=== PATIENT | female | born 1955 | race Caucasian/White ===

== ENCOUNTER → 2016-12-03 17:46 | Outpatient (CLI) | payer MEDICARE ==
[2014-05-03 07:01] VITALS: BMI 26.6
[~2016-12-03 17:46] MED LIST: LOPRESSOR25 MG PO; SYNTHROID112 MCG PO; TRAZODONE HCL50 MG PO; [UNRECOGNIZED DRUG - OTHER] TD
== END | disposition home or self-care (01) ==
LOC: D.MAMMO 11:00
DX: Z12.31 Encounter for screening mammogram for malignant neoplasm of breast (principal)

== ENCOUNTER 2017-03-05 08:55 | Outpatient (CLI) | payer MEDICARE ==
[~2017-03-05] VITALS: Ht 167.6 cm; Wt 72.7 kg
--- NOTE | ~2017-03-05 | HEMODYNAMI ---
PATIENT:MELVIN CARDOZA MEDICAL RECORD: [id number] : 59 LOCATION:[facility] ADMISSION DATE: 03/05/17 Generatedon:03/05/201711:16 Patient name: MELVIN CARDOZA Patient #: [id number] SSN: D OB: 1955 Date of study: 03/05/2017 Page: Of Hemodynamic Procedure Report Patient Data Patient Demographics Procedure consent was obtained First Name: MELVIN Gender: Female Last Name: NANI : 1955 [facility] Initial: L Age: 61 year(s) Patient #: [id number] Race: Unknown Additional ID: [id number] Contact details [address]: [address] [place] [address] State: [place] City: [place] Zip code: [address] Past Medical History Allergies Allergen Reaction Date Comments Reported Other allergy 03/05/2017 SULFA, CODEINE Admission Admission Data Admission Date: 03/05/2017 Admission Time: 8:55 Admit Source: Other Height (in.): 5.6 BSA: 0.31 (m2) Height (cm.): 14.22 BMI: 3676.76 (kg/m2) Weight (lbs.): 164 Weight (kg.): 74.39 Lab Results Lab Result Date: 03/05/2017 Lab Result Time: 9:40 Biochemistry Name Units Result Min Max BUN mg/dl 16 --(---*)-- 7 18 Creatinine mg/dl 0.7 --(*---)-- 0.6 1.3 CBC Name Units Result Min Max Hematocrit % 39.8 -*(----)-- 42 54 Hemoglobin g/dl 13.3 -*(----)-- 13.5 17.5 Procedure Procedure Types Cath Procedure Diagnostic Procedure LHC LHC w/Coronaries Miscellaneous Procedures Moderate Sedation up to 15 minutes Procedure Description Procedure Date Procedure Date: 03/05/2017 Procedure Start Time: 11:05 Procedure End Time: 11:15 Procedure Staff Name Function Eldon Song MD Performing Physician Veronica Lima RT Monitor Renny Green RT Scrub Tao Dunham RN Nurse Procedure Data Cath Procedure Fluoroscopy Diagnostic fluoroscopy Total fluoroscopy Time: time: 0.66 min 0.66 min Diagnostic fluoroscopy Total fluoroscopy dose: 91 dose: 91 mGy mGy Contrast Material Contrast Material Type Amount (ml) Isovue 300 54 Entry Location Entry Primary Successful Side Size Upsize Upsize Entry Closure Succes sful Closure Location (Fr) 1 (Fr) 2 (Fr) Remarks Device Remarks Femoral Right 5 Fr Exoseal artery Estimated blood loss: 5 ml Diagnostic catheters Device Type Used For End Catheter Placement MULTIPACK Pigtail 5 Fr Procedure catheter MULTIPACK JL 4.0 5Fr Procedure catheter MULTIPACK 3DRC 5Fr Procedure catheter Procedure Complications No complications Procedure Medications Medication Administration Route Dosage Oxygen NC 2 l/min Heparin Flush Bag added to field 2 bags (1000units/500ml NS) 0.9% NaCl I.V. ml/hr Fentanyl I.V. 50 mcg Versed I.V. 1 mg Fentanyl I.V. 50 mcg Versed I.V. 1 mg Hemodynamics Rest BSA: 0.31 (m2) HGB: 13.3 (g/dl) O2 Consumption: Estimated: 29.37 (ml/min) O2 Con sumption indexed: Estimated:94.74 (ml/min/m) Heart Rate: 69 (bpm) Snapshots Pre Cath Intra NCS Post Cath Vital Signs Time Heart Resp SPO2 etCO2 NIBP (mmHg) Rhythm Pain Sedation Rate (ipm) (%) (mmHg) Status Level (bpm) 10:50:38 65 18 97 170/86(116) NSR 0 (11) 10(A) , No pain 10:55:02 64 17 96 35.4 163/79(121) NSR 0 (11) 10(A) , No pain 10:59:24 69 18 92 37.7 152/77(125) NSR 0 (11) 10(A) , No pain 11:03:42 66 16 92 40 148/73(117) NSR 0 (11) 10(A) , No pain 11:07:58 71 17 89 42.9 134/72(99) NSR 0 (11) 9(A) , No pain 11:12:12 72 18 95 37.7 142/81(101) NSR 0 (11) 9(A) , No pain Medications Time Medication Route Dose Verified Delivered Reason Notes Effec tiveness by by 10:53:31 Oxygen NC 2 Eldon Burger Per l/min Duncan Dunham RN physician 10:53:40 Heparin Flush added 2 Eldon Bruger used for Bag to bags Duncan Dunham reverberatory furnace operator (1000units/500ml field NS) 10:53:47 0.9% NaCl I.V. ml/hr Eldon Burger Per Duncan Dunham RN physician 11:05:29 Fentanyl I.V. 50 Eldon Overtony for mcg Duncan Dunham RN sedation 11:05:35 Versed I.V. 1 mg Eldon Burger for Duncan Dunham RN sedation 11:09:46 Fentanyl I.V. 50 Eldon Burger for mcg Duncan Dunham RN sedation 11:09:50 Versed I.V. 1 mg Eldon Burger for Duncan Dunham RN sedation Procedure Log Time Note 10:25:37 Veronica Lima RT(R) sent for patient. Start room use. 10:29:36 Informed consent obtained and on chart 10:29:49 Admit Source: Other 10:29:51 Diagnostic Cath status Elective 10:29:53 Time tracking: Regular hours 10:29:56 Plan of Care:Hemodynamics will remain stable., Cardiac rhythm will remain stable., Comfort level will be maintained., Respiratory function will remain adequate., Patient/ family verbilizes understanding of procedure., Procedure tolerated without complication., Recovers from procedure without complications.. 10:30:07 H&P Date Dictated: 02/21/2017 Within 30 days and on chart., H&P Addendum completed by physician on day of procedure. (MUST COMPLETE FOR ALL OUTPATIENTS). 10:31:12 Lab Result : Hematocrit 39.8 % 10:31:12 Lab Result : Hemoglobin 13.3 g/dl 10:31:12 Lab Result : BUN 16 mg/dl 10:31:12 Lab Result : Creatinine 0.7 mg/dl 10:36:26 Patient Height : 5.6 inches 10:36:32 Patient Weight : 164 lbs 10:43:50 Patient received from Pre/Post Procedure Room to [facility] 3 Alert and oriented. Tansferred to table in Supine position. 10:43:51 Warm blankets applied, and roman hugger turned on for patient comfort. 10::52 Correct patient and procedure confirmed by team. 10::53 ECG and BP/O2 sat monitors applied to patient. 10:49:23 Vital chart was started 10:52:46 Baseline sample Acquired. 10::51 Rhythm: sinus rhythm 10:52:52 Full Disclosure recording started 10::53 Pre-procedure instructions explained to patient. 10::54 Pre-op teaching completed and patient verbalized understanding. 10:52:56 Family in patients room. 10:52:57 Patient NPO since Midnight. 10:53:12 Patient allergic to Other allergySULFA, CODEINE 10:53:14 Is the patient allergic to Iodine/contrast media? No. 10:53:16 Is patient on blood thinner?No 10:53:18 Patient diabetic? No. 10:53:22 Patient not . Patient is over age 55. 10:53:26 Previous problem with sedation/anesthesia? No ? 10:53:28 Snore? Yes 10:53:29 Sleep apnea? No 10:53:30 Deviated septum? No 10:53:31 Oxygen 2 l/min NC was administered by Tao Dunham RN; Per physician; 10:53:37 Opens mouth fully? Yes 10:53:38 Sticks out tongue? Yes 10:53:40 Heparin Flush Bag (1000units/500ml NS) 2 bags added to field was administered by Tao Dunham RN; used for procedure; 10:53:40 Airway obstruction? No ? 10:53:46 Dentures? Yes PARTIALS IN TIGHT 10:53:47 0.9% NaCl ml/hr I.V. was administered by Tao Dunham RN; Per physician; 10:53:50 Pre procedure: right dorsailis pedis pulse 2+ Normal; easily identifiable; not easily obliterated 10:53:57 IV patent on arrival in right forearm with 0.9% NaCl at [facility]. 10:54:01 Lab results completed and on chart. 10:54:04 Right groin area was prepped with chlora-prep and draped in sterile fashion 10:54:06 Alarms reviewed by R. N. 10:54:06 Sharps counted by scrub and verified by R.N. 11:01:21 Physician paged 11:02:27 --------ALL STOP TIME OUT------ :: Final Timeout: patient, procedure, and site verified with staff and physician. All members of the team are in agreement. 11:02:29 Right groin site verified by team. 11:02:32 Physical assessment completed. ASA score P 2 - A patient with mild systemic disease as per Eldon Song MD. 11:02:36 Sedation plan: IV Moderate Sedation Medication:Versed, Fentanyl 11:02:43 Use device set Femoral Dx 11:02:45 ACIST Syringe (41913) opened to sterile field. 11:02:46 Bag Decanter (2002S) opened to sterile field. 11:02:47 ACIST Hand Control (39803) opened to sterile field. 11:02:48 ACIST Manifold (07828) opened to sterile field. 11:02:49 Tegaderm 4 x 4 (1626W) opened to sterile field. 11:02:51 Medline Cath Pack ([id number]) opened to sterile field. 11:02:51 SHEATH 5FR Monclova (CUL910) opened to sterile field. 11:02:52 DIAGNOSTIC WIRE .035 260cm J wire (833160) opened to sterile field. 11:02:53 DIAGNOSTIC Multipack 5Fr catheter set (ML1860) opened to sterile field. 11:02:54 PERCUTANEOUS ENTRY 19GA needle opened to sterile field. 11:03:59 Zero performed for pressure channel P1 11:04:12 Zero performed for pressure channel P1 11:05:29 Fentanyl 50 mcg I.V. was administered by Tao Dunham RN; for sedation; 11:05:35 Versed 1 mg I.V. was administered by Tao Dunham RN; for sedation; 11:05:39 Procedure started. 11:05:44 Local anesthetic to right femoral artery with Lidocaine 2% by Eldon Song MD.INITIAL ACCESS ONLY 11:06:23 A 5 Fr sheath was inserted into the Right Femoral artery 11:07:08 A MULTIPACK Pigtail 5 Fr catheter was advanced over the wire and used for Procedure. 11:07:10 LV gram done using TSANG 11:07:18 Injector settings: Ml/sec: 10, Volume: 20, 11:07:43 EF : 60 % 11:07:46 Catheter removed. 11:07:51 A MULTIPACK JL 4.0 5Fr catheter was advanced over the wire and used for Procedure. 11:08:45 LCA angiography performed. 11:09:39 Catheter removed. 11:09:46 Fentanyl 50 mcg I.V. was administered by Tao Dunham RN; for sedation; 11:09:50 Versed 1 mg I.V. was administered by Tao Dunham RN; for sedation; 11:10:11 A MULTIPACK 3DRC 5Fr catheter was advanced over the wire and used for Procedure. 11:10:30 RCA angiography performed. 11:10:34 Catheter removed. 11:10:37 EXOSEAL 5Fr (EX500) opened to sterile field. 11:11:53 Sheath removed intact; hemostasis achieved with Exoseal to the Right Femoral artery. 11:11:55 Procedure ended.(Physican Out) 11:12:54 Fluoroscopy time 00.66 minutes. 11:13:01 Fluoroscopy dose: 91 mGy 11:13:01 Flurop Dose total: 91 11:13:10 Contrast amount:Isovue 300 54ml. 11:13:12 Sharps counted by scrub and verified by R.N. 11:13:16 Insertion/operative site no bleeding no hematoma. 11:13:19 Post-op/insertion site Right Femoral artery dressed using a 4 x 4 and Tegaderm. 11:13:23 Post right femoral artery:stable, soft, clean and dry 11:13:27 Post-procedure physical assessment completed. ASA score P 2 - A patient with mild systemic disease as per Eldon Song MD. 11:13:30 Post procedure rhythm: unchanged. 11:13:32 Estimated blood loss: 5 ml 11:13:34 Post procedure instruction explained to patient.Patient verbalizes understanding. 11:13:34 Patient needs reinforcement of post procedure teaching. 11:13:41 Procedure type changed to Cath procedure, Diagnostic procedure, LHC, LHC w/Coronaries, Miscellaneous Procedures, Moderate Sedation up to 15 minutes 11:14:04 Procedure and supply charges have been captured, reviewed, submitted and are correct. 11:14:08 Procedure Complication : No complications 11:15:15 Vital chart was stopped 11:15:16 See physician's report for complete and final results. 11:15:17 Report given to Pre/Post Procedure Room. 11:15:23 Patient transfered to Pre/Post Procedure Room with Bed. 11:15:29 Procedure ended. 11:15:29 Full Disclosure recording stopped 11:15:37 End room use (Document Last) Device Usage Item Name Manufacture Quantity Catalog Hospital Part Current Minimal Lot# / Number Charge Number Stock Stock Serial# Code ACIST Acist 1 85127 643605 982496 874645 20 Syringe Medical (81052) Systems Inc Bag Decanter Microtek 1 2001S 125087 29625 007461 5 (2001S) Medical Inc. ACIST Hand Acist 1 93192 306628 120169 912598 5 Control Medical (97712) Systems Inc ACIST Acist 1 73851 016321 145773 650291 5 Manifold Medical (43448) Systems Inc Tegaderm 4 x 3M 1 1626W 890627 188868 068240 5 4 (1626W) Medline Cath Cardinal 1 [id number] 300726 19532 444687 5 Pack Health ([id number]) SHEATH 5FR Terumo 1 CPO815 104576 507038 537672 40 Monclova (YWY266) DIAGNOSTIC St Elvis 1 409119 301079 640725 813697 30 WIRE .035 260cm J wire (507942) DIAGNOSTIC Cardinal 1 BX3679 287955 74448 251553 30 Multipack Health 5Fr catheter set (CO4422) PERCUTANEOUS Cook Medical 1 M15784 964008 937007 5 ENTRY 19GA needle MULTIPACK Cardinal 1 658853 5 Pigtail 5 Fr Health catheter MULTIPACK JL Cardinal 1 974014 5 4.0 5Fr Health catheter MULTIPACK Cardinal 1 622301 5 3DRC 5Fr Health catheter EXOSEAL 5Fr Cardinal 1 EX500 481065 681878 301979 10 (EX500) Health Signature Audit [place] Stage Time Signature Unsigned Intra-Procedure 03/05/2017 Veronica Lima 11:16:00 AM RT(R) Signatures Monitor : Veronica Lima Signature : RT Date : Time : [address] [address]
--- NOTE | ~2017-03-05 | OP ---
PATIENT NAME: MELVIN CARDOZA MEDICAL RECORD: [id number] :59 LOCATION:[facility] ADMISSION DATE: SURGEON: GALLITO GALLOWAY MD DATE OF OPERATION: 03/05/2017 DATE OF SERVICE: 03/05/2017 PROCEDURES: 1. Left heart catheterization. 2. Selective coronary angiography. 3. Left ventriculogram. INDICATION: Chest pain compatible with angina, coronary artery disease, previous PTCA stent. PROCEDURE IN DETAIL: After informed consent was obtained and after detailed explanation of risks, benefits as well as alternative therapies, the patient elected to proceed with angiogram and heart catheterization. The right femoral area was prepped and draped in normal sterile fashion. The right femoral artery was cannulated via modified Seldinger technique with placement of 5-Amharic sheath. All catheters exchanged through this sheath. FINDINGS: The left ventriculogram was performed in standard 30-degree TSANG view, reveals good cardiac wall motion throughout all segments. Overall ejection fraction estimated at 60%. SELECTIVE CORONARY ANGIOGRAPHY: 1. Left main showed no significant angiographic disease. 2. Left anterior descending has previously placed stent. This is widely patent with no significant restenosis. No disease elsewise to the LAD or its branches. 3. Left circumflex shows moderate irregularities, but no flow-limiting stenosis. 4. Right coronary has moderate irregularities, but no flow-limiting stenosis. OVERALL IMPRESSION: Wide patency of the previously placed stent. No disease elsewise. Normal left ventricular function. Continue medical management of the coronary artery disease and cardiac risk factors. TRANSINT:[id number] Voice Confirmation ID: [id number] DOCUMENT ID: [id number] GALLITO GALLOWAY MD at 1323 CC: [id number] DICTATION DATE: 03/05/17 1121 FILTER TANK TENDER HELPER: 03/05/17 1137 DEP CLI 03/05/17 [place] [id number]
[2017-03-05 09:38] VITALS: BP 132/69; Ht 167.6 cm; Wt 72.7 kg
[2017-03-05 09:58] LABS: BASOPHILS 1.1 % (0-2); EOSINOPHILS 5.6 % (0-7); HEMATOCRIT 39.8 % (36.0-48.0); HEMOGLOBIN 13.3 g/dL (12-16); IMMATURE GRANULOCYTES 0.3 % (0-5); LYMPHOCYTES 26.3 % (15-50); MCHC 33.4 g/dL (31.0-37.0); MCV 95.7 fL (80.0-100.0); MEAN PLATELET VOLUME 9.7 fL (7.4-10.4); MONOCYTES 7.3 % (2-11); NEUTROPHILS 59.4 % (40-80); RBC 4.16 10x6/uL (4.00-5.40); RDW 12.1 % (11.5-14.5); WBC 7.4 10x3/uL (4.8-10.8)
[2017-03-05 10:00] LABS: PLATELET COUNT 239 10x3/uL (130-400)
[2017-03-05 10:08] LABS: CALC OSMOLALITY 275 mosm/kg (275-300); CALCIUM 9.2 mg/dL (8.5-10.1); CARBON DIOXIDE 28.5 mmol/L (21.0-32.0); CHLORIDE - SERUM 104 mmol/L (98-107); CREATININE - SERUM 0.7 mg/dL (0.6-1.3); GLUCOSE 83 mg/dL (74-106); SODIUM 138 mmol/L (136-145); UREA NITROGEN 16 mg/dL (7-18); eGFR NON AFRICAN AMERICAN > 90 mL/min (90-120)
== END 2017-03-05 13:25 | disposition home or self-care (01) ==
LOC: D.CATH 08:55
PROVIDERS: Internal Medicine Interventional Cardiology
DX: I25.119 Atherosclerotic heart disease of native coronary artery with unspecified angina pectoris (principal); I10 Essential (primary) hypertension; Z01.812 Encounter for preprocedural laboratory examination; Z95.5 Presence of coronary angioplasty implant and graft

== ENCOUNTER 2017-03-28 10:21 | Day surgery (SDC) | payer MEDICARE ==
[~2017-03-28] VITALS: Ht 166.4 cm; Wt 72.6 kg
--- NOTE | ~2017-03-28 | OP ---
PATIENT NAME: MELVIN CARDOZA MEDICAL RECORD: [id number] :59 LOCATION:[facility] ADMISSION DATE: SURGEON: FACUNDO FOREMAN DATE OF OPERATION: 03/28/2017 SURGEON: Facundo Foreman DPM PREOPERATIVE DIAGNOSIS: Plantar fasciitis, left foot. POSTOPERATIVE DIAGNOSIS: Plantar fasciitis, left foot. PROCEDURE: Partial plantar fasciotomy, left foot. ESTIMATED BLOOD LOSS: Minimal. MATERIALS: 4-0 nylon. INJECTABLES: 20 cc of 0.5% bupivacaine plain. INDICATION FOR PROCEDURE: The patient has longstanding history of pain associated with the left foot. She previously underwent plantar fasciotomy of the right foot and did quite well. She is here today for plantar fasciotomy of the left foot. We have discussed the proposed procedure, risks, and benefits were discussed. Complications were reviewed. Her questions were answered. She was appropriately consented for the above-mentioned procedures. DESCRIPTION OF PROCEDURE: The patient was brought in the operating room and placed in the operating table in supine position. A timeout was called with Dr. Foreman, who identified the patient, the surgical site, and the surgery to be performed. Once appropriate anesthesia was obtained, the foot was prepped and draped in the usual aseptic manner. The pneumatic ankle tourniquet was inflated to 250 mmHg on the well-padded right ankle. Attention was directed to the plantar surface of the right foot where a 2-cm linear incision was made over the medial calcaneal tubercle. This incision was carried deep through soft tissue with care being taken to retract all vital neurovascular structures. All bleeders were cauterized along the way. Through this incision, the plantar fascia was identified. Utilizing a fresh 15 blade, the medial one-half of the plantar fascia was sharply transected. The surgical site was then investigated for any remaining tight plantar fascial bands and none were noted. The surgical site was then irrigated with copious amounts of normal sterile saline via bulb syringe. The skin was then reapproximated and coapted utilizing 4-0 nylon. A dressing consisting of Xeroform, 4 x 4's, Kerlix, and Will bandage was applied to the left foot. The pneumatic ankle tourniquet was deflated and capillary refill time is immediate to all digits of the left foot. The patient was discharged home with instructions to ice and elevate the left foot. She was dispensed a boot to further help offload the foot. We will follow up with her next week in the office. She has my cell phone number for OPERATIVE REPORT [id number] MELVIN CARDOZA any after hour difficulties and there were no complications with this procedure. TRANSINT:[id number] Voice Confirmation ID: [id number] DOCUMENT ID: [id number] FACUNDO FOREMAN CC: [id number] DICTATION DATE: 03/28/17 1618 FILM PAINTER: 03/28/17 1657 [facility] [place] 03/28/[address] [address]
[2017-03-28 11:52] VITALS: BP 107/56; Ht 166.4 cm; Wt 72.6 kg
[2017-03-28 11:58] LABS: HEMATOCRIT 37.2 % (36.0-48.0); HEMOGLOBIN 12.6 g/dL (12-16); MCH 31.8 pg (26.0-34.0); MCHC 33.9 g/dL (31.0-37.0); MCV 93.9 fL (80.0-100.0); MEAN PLATELET VOLUME 9.7 fL (7.4-10.4); RBC 3.96 10x6/uL (4.00-5.40); RDW 12.2 % (11.5-14.5); WBC 6.2 10x3/uL (4.8-10.8)
== END 2017-03-28 15:45 | disposition home or self-care (01) ==
LOC: D.OPS 10:21 → D.PAN 14:30 → D.OPS 14:30
PROVIDERS: Anesthesiology
DX: M72.2 Plantar fascial fibromatosis (principal); Z01.812 Encounter for preprocedural laboratory examination